=== PATIENT | male | born 1990 | race Two or more races ===

== ENCOUNTER 2025-04-20 03:34 | Emergency (ER) | payer MEDICAID ==
[~2025-04-20] VITALS: Ht 182.9 cm; Wt 83.5 kg
[2025-04-20 04:08] VITALS: BP 99/61; PULSE 66; RESP 18; TEMP 97.9; O2SAT 98
[2025-04-20] MEDS: LIDOCAINE 1% 10 ML VIAL SQ ONE (04:56)
== END 2025-04-20 06:03 | disposition home or self-care (01) ==
LOC: EMS 03:38
DX: S61.211A Laceration without foreign body of left index finger without damage to nail, initial encounter (principal); W45.8XXA Other foreign body or object entering through skin, initial encounter; Y93.89 Activity, other specified; Y92.89 Other specified places as the place of occurrence of the external cause; Y99.8 Other external cause status
CPT/HCPCS: 99282; 12001; J3490